=== PATIENT | female | born 1960 | race African-American/Black ===

== ENCOUNTER → 2016-12-22 07:58 | Outpatient (CLI) | payer MEDICARE ==
--- NOTE | 2016-12-27 06:59 | EMG ---
PATIENT:VELMA BOWDEN DATE OF SERVICE: 12/22/16 MEDICAL RECORD: [id number] DATE OF : 62 LOCATION: [facility] ADMISSION DATE: REFERRING PHYSICIAN: XANDER HOLLY MD INTERPRETING PHYSICIAN: ABDIRAHMAN BARTON MD DATE OF SERVICE: 12/22/2016 Electromyographic Report REFERRED BY: Dr. Duff and XANDER Holly as an outpatient. DATE OF EXAMINATION: 12/22/2016. ELECTROMYOGRAPHIC DATA: Electromyographic examination is limited to the left upper extremity. In the left upper extremity, left median motor stimulation elicits a compound motor action potential with a distal latency of 3.4 milliseconds, peak amplitude of 9 millivolts, and calculated conduction velocity of 52 meters per second. Left ulnar motor stimulation elicits a compound motor action potential with a distal latency of 2.5 milliseconds, peak amplitude of 8 millivolts, and calculated conduction velocity of 56 meters per second. Left ulnar motor stimulation across the elbow fails to elicit evidence of conduction block at this level. Antidromic left median sensory stimulation elicits a response with a distal latency of 3.6 milliseconds, amplitude of 8 microvolts and calculated conduction velocity of 56 meters per second. Antidromic left ulnar sensory stimulation elicits a response with a distal latency of 2.9 milliseconds, amplitude of 13 microvolts and calculated conduction velocity of 56 meters per second. The left median F wave has a latency of 30 milliseconds. Needle electrode examination is limited to the left upper extremity as well. Muscles interrogated include the abductor pollicis brevis, first dorsal interosseous, abductor digiti minimi, pronator teres, biceps brachii, triceps and deltoid. There is no abnormality of insertional activity and no abnormal spontaneous activity is seen in all muscles interrogated. Motor unit potential morphology and the pattern of motor unit potential firing and recruitment is normal in all muscles sampled. INTERPRETATION: Electromyographic examination of the left upper extremity is normal. There is no electrical evidence of a cervical radiculopathy or other lesion of the lower motor neuron in the upper extremity at this time. There is no evidence of active denervation. TRANSINT:[id number] Voice Confirmation ID: [id number] DOCUMENT ID: [id number] ELECTROMYGRAM/NERVE CONDUCTION [id number] VELMA BOWDEN ABDIRAHMAN BARTON MD at 0659 CC: [id number] DICTATION DATE: 12/22/16 0847 NETWORK STRATEGIST: 12/23/16 0059 DEP CLI 12/22/16 [place] [id number] [place] [id number]
== END | disposition home or self-care (01) ==
LOC: D.CN 10-25 08:00
DX: M25.512 Pain in left shoulder (principal); M79.642 Pain in left hand

== ENCOUNTER 2017-03-16 10:54 | Outpatient (CLI) | payer MEDICARE | END 2017-03-16 13:50 | LOC: D.MAMMO 10:54 | DX: Z12.31 Encounter for screening mammogram for malignant neoplasm of breast (principal) ==

== ENCOUNTER 2018-03-22 08:10 | Outpatient (CLI) | payer MEDICARE | END 2018-03-22 08:11 | disposition home or self-care (01) | LOC: D.MAMMO 08:10 | DX: Z12.31 Encounter for screening mammogram for malignant neoplasm of breast (principal) ==

== ENCOUNTER 2018-05-07 08:00 | Outpatient (CLI) | payer MEDICARE | END 2018-05-07 09:00 | disposition home or self-care (01) | LOC: D.MAMMO 08:00 | DX: R92.8 Other abnormal and inconclusive findings on diagnostic imaging of breast (principal) ==

== ENCOUNTER → 2019-02-13 17:16 | Outpatient (CLI) | payer MEDICARE | END | disposition home or self-care (01) | LOC: D.MAMMO 12-10 09:45 | PROVIDERS: ATTEND Family Medicine | DX: R92.8 Other abnormal and inconclusive findings on diagnostic imaging of breast (principal) ==

== ENCOUNTER 2019-07-12 09:00 | Outpatient (CLI) | payer MEDICARE | END 2019-07-12 10:00 | disposition home or self-care (01) | LOC: D.MAMMO 09:00 | PROVIDERS: ATTEND Nurse Practitioner Family | DX: R92.2 Inconclusive mammogram (principal) ==

== ENCOUNTER 2020-04-01 08:00 | Outpatient (CLI) | payer MEDICARE | END 2020-04-01 14:30 | disposition home or self-care (01) | LOC: D.MAMMO 08:00 | PROVIDERS: ATTEND Family Medicine | DX: N63.15 Unspecified lump in the right breast, overlapping quadrants (principal) ==

== ENCOUNTER 2020-05-01 13:44 | Day surgery (SDC) | payer MEDICARE ==
--- NOTE | 2020-04-29 10:07 | NUR ---
pt's bp- 158/79 pt stated she hadn't took her bp meds yet.
[2020-04-29 10:54] LABS: HEMATOCRIT 37.5 % (36.0-48.0); HEMOGLOBIN 12.8 g/dL (12-16); MCH 30.5 pg (26.0-34.0); MCHC 34.1 g/dL (31.0-37.0); MCV 89.3 fL (80.0-100.0); MEAN PLATELET VOLUME 8.9 fL (7.4-10.4); RBC 4.2 10x6/uL (4.00-5.40); RDW 13.3 % (11.5-14.5); WBC 7.3 10x3/uL (4.8-10.8)
[2020-04-29 10:56] LABS: CALC OSMOLALITY 280 mosm/kg (275-300); CALCIUM 9.1 mg/dL (8.5-10.1); CARBON DIOXIDE 29.6 mmol/L (21.0-32.0); CHLORIDE - SERUM 102 mmol/L (98-107); CREATININE - SERUM 0.8 mg/dL (0.6-1.3); GLUCOSE 92 mg/dL (74-106); POTASSIUM - SERUM 3.9 mmol/L (3.5-5.1); SODIUM 140 mmol/L (136-145); UREA NITROGEN 18 mg/dL (7-18); eGFR NON AFRICAN AMERICAN 78 mL/min (90-120)
[~2020-05-01] VITALS: Ht 170.2 cm; Wt 81.6 kg
[2020-05-01 09:12] VITALS: Ht 170.2 cm; Wt 81.6 kg
--- NOTE | 2020-05-01 13:43 | NUR ---
1320-RECD TO ROOM FROM PACU. ALERT. IV PATENT. L SHOULDER DRESSING DRY AND INTACT, SLING ON, ICE PACK TO SHOULDER. DENIES PAIN/NAUSEA.
[~2020-05-01 13:44] MED LIST: ALDACTONE25 MG PO; ASPIRIN81 MG PO; CARBATROL 200200 MG PO; COZAAR100 MG PO; CRESTOR20 MG PO; GLUCOPHAGE500 MG PO; HYDROCODON-ACE1 EA10 PO; NORVASC10 MG PO; PREMARIN1.25 MG PO; STOOL SOFTENER100 M1 PO; TEMAZEPAM30 MG PO; TOPROL XL50 MG PO
--- NOTE | 2020-05-01 14:13 | NUR ---
1415-DISCHARGE INSTRUCTIONS REVIEWED, PRESCRIPTIONS GIVEN. 1420-SON TY CALLED FOR DISCHARGE TIME OF 1430.
--- NOTE | 2020-05-01 14:28 | NUR ---
1425-ESCORTED TO EXIT VIA WHEELCHAIR TO MEET SON, HORACE.
--- NOTE | 2020-05-03 07:56 | OP ---
PATIENT NAME: VELMA VIERA MEDICAL RECORD: [id number] :62 LOCATION:[facility] ADMISSION DATE: SURGEON: SONNY ISSA DO DATE OF OPERATION: 05/01/2020 PROCEDURE PERFORMED: Left shoulder arthroscopy with subacromial decompression, distal clavicle excision, rotator cuff repair, labral debridement, bicep tenodesis, and left ring finger A1 joce release. PREOPERATIVE DIAGNOSIS: Left shoulder rotator cuff tear, full thickness SLAP tear, subacromial impingement and acromioclavicular joint arthritis and the left ring trigger finger. POSTOPERATIVE DIAGNOSIS: Left shoulder rotator cuff tear, full thickness SLAP tear, subacromial impingement and acromioclavicular joint arthritis and the left ring trigger finger. INDICATIONS: Ms. Viera is a 59-year-old female who had an MRI, which showed the above findings as well as a left trigger finger in the ring finger. She was tired of dealing with it and wanted something done surgically. I informed her of the risks including infection, bleeding, damage to nerves or vessels in the area, continued pain, frozen shoulder, need for further surgery, retear of the rotator cuff tendon, biceps deformity, blood clots, and even , and she signed the consent. SURGEON: Sonny Issa DO DESCRIPTION OF PROCEDURE: The patient received 900 mg clindamycin preoperatively. The anesthesia did a block on the shoulder. She was then taken to the operative suite, laid in the right lateral decubitus position and LMA was placed after being sedated. The left upper extremity was then prepped and draped in sterile fashion including the shoulder. A timeout was performed, everyone was in agreement with correct side, site, patient and procedure. We then put a forearm tourniquet on and exsanguinated the left hand and the tourniquet was inflated to 250 mmHg, it was up for 4 minutes. I then made an incision over the distal crease in the palm with a #15 blade scalpel and made a blunt dissection with Kymberlynell down to the A1 joce, it was quite tight. I then released the A1 joce under direct visualization using scissors, I then pulled the flexor tendon out through ensuring there were no rents or a knot. I then closed with 4-0 nylon in a horizontal mattress fashion, dressed with Adaptic, 4 x 4s, cast padding and Coban lightly wrapped. We then hung her in the harness for the shoulder scope, I then inflated the shoulder with 60 mL of normal saline through the posterior portal with an 18-gauge spinal needle, then established posterior portal with an 11 blade scalpel and trocar was entered into the joint. I then established an anterior portal, placing 18-gauge spinal needle and 11-blade scalpel. She had a severe tear on the superior labrum and the burner was brought in to do a biceps tenotomy and that was performed and then the labral debridement was done. I then saw a tear of the articular side of the supraspinatus. The subscapularis in good repair as well as the joint. There was no cartilage damage and nothing in the inferior joint. The infraspinatus was also in good repair. I went to the subacromial space, established lateral portal with an 18-gauge spinal needle and 11-blade scalpel. Trocar was then brought in. I then did a subacromial decompression with a shaver and a distal clavicle excision through anterior portal and then removed any bursa in the way and she had a large spur on the acromion and this was removed with the shaver. OPERATIVE REPORT [id number] VELMA VIERA Once that was done, I noted she had a full-thickness tear in the bursal side as well and this was marked with an 18-gauge spinal needle. The camera was then removed from the shoulder and the lateral incision was extended proximally and distally and using [employer], I did blunt dissection down to the tear. This was exposed and decorticated the humerus and then put a single medial row trough the tendon and tied knots and brought it out to a lateral row to make a nice repair on the tendon. I then put the Regeneten patch on and stapled it into place medial and lateral. I then went to the anterior humerus and made a small incision and fished out the long head of bicep tendon and put a JuggerLoc 2.9 anchor in with loop and looped it, removed the long head of bicep tendon through that, cinched down and then cut the excess suture with a free needle, went back through the tendon and tied that down, cut the excess tendon and suture. The sites were then irrigated with normal saline and closed by Winsome Duffy, certified neurosurgical nurse practitioner, with 2-0 Vicryl in inverted interrupted fashion, 4-0 Monocryl ran on the skin on the biceps tenodesis and rotator cuff tendon repair site with the Dermabond glue. The 2 portal, anterior portal sites were closed with 4-0 Monocryl in inverted interrupted fashion and Dermabond glue. She was then dressed with Telfa and Tegaderm, put in a sling. The tourniquet time for the trigger finger was 4 minutes and it was let down 4 minutes. I did inject that site with 8 mL of 0.25% Marcaine with epinephrine. She was then awakened and taken to recovery in stable condition. BLOOD LOSS: Minimal. COMPLICATIONS: None. TRANSINT:[id number] Voice Confirmation ID: [id number] DOCUMENT ID: [id number] SONNY ISSA DO at 0756 CC: [id number] DICTATION DATE: 05/01/20 1350 ANESTHESIA TECHNICIAN: 05/02/20 0004 [facility] 05/01/20 [place] [id number] [place] [address]
== END 2020-05-01 14:30 | disposition home or self-care (01) ==
LOC: D.OPS 13:44
PROVIDERS: Anesthesiology; ATTEND Orthopaedic Surgery
DX: M75.102 Unspecified rotator cuff tear or rupture of left shoulder, not specified as traumatic (principal); S43.432A Superior glenoid labrum lesion of left shoulder, initial encounter; M75.42 Impingement syndrome of left shoulder; M19.012 Primary osteoarthritis, left shoulder; M65.342 Trigger finger, left ring finger; X58.XXXA Exposure to other specified factors, initial encounter; E11.9 Type 2 diabetes mellitus without complications